=== PATIENT | female | born 1955 | race Caucasian/White ===

== ENCOUNTER 2021-08-27 05:30 | Day surgery (SDC) | payer OTHER, SELFPAY ==
[~2021-08-27] VITALS: Ht 167.6 cm; Wt 72.6 kg
[2021-08-27] MEDS ORDERED: CEFAZOLIN SOD 1 GM in D5W 50 ML IV ONE (07:30)
[2021-08-27] MEDS ORDERED: KETOROLAC TROMETHAMINE 30 MG VIAL IVP ONE (10:15)
[2021-08-27] MEDS ORDERED: LR 1,000 ML IV.SOLN IV ONE (10:15)
[2021-08-27] MEDS ORDERED: ISOSULFAN BLUE 5 ML VIAL (LYMPHAZURIN) INJ ONE (10:15)
[2021-08-27] MEDS ORDERED: NS IRRIG SOLN 1000 ML IR ONE (10:15)
[2021-08-27] MEDS ORDERED: SEVOFLURANE 15 MIN GAS INH ONE (10:15)
[2021-08-27] MEDS ORDERED: BUPIVACAINE /PF 0.25% 30 ML VIAL INJ ONE (10:15)
[2021-08-27] MEDS ORDERED: PROPOFOL 200MG/ 20ML VIAL (DIPRIVAN) IV ONE (10:15)
[2021-08-27] MEDS ORDERED: MIDAZOLAM HCL 5 MG/5 ML VIAL IVP ONE (10:15)
[2021-08-27] MEDS ORDERED: ONDANSETRON HCL 4 MG/2 ML VIAL IVP ONE (10:15)
[2021-08-27] MEDS ORDERED: HYDROmorphone 1 MG/ML INJ. CARTRIDGE IVP PRN (11:00)
[2021-08-27] MEDS ORDERED: KETOROLAC TROMETHAMINE 30 MG VIAL IVP PRN (11:00)
[2021-08-27] MEDS ORDERED: IBUPROFEN 400 MG TABLET PO ONE (11:00)
[2021-08-27] MEDS ORDERED: ONDANSETRON HCL 4 MG/2 ML VIAL IVP PRN (11:00)
[2021-08-27] MEDS ORDERED: D5/0.45 NS 1,000 ML IV SCH (11:45)
[2021-08-27] MEDS ORDERED: HYDROcodone/ACETAMIN 5-325 MG TAB (NORCO/ VICODIN) PO PRN ×2 (11:45)
[2021-08-27 14:33] VITALS: BP_SYST 150
== END 2021-08-27 14:00 | disposition home or self-care (01) ==
LOC: SDS 05:30 → SMU 05:30 → EDSTATUS 09:00 → SDS 14:00
PROVIDERS: ATTEND Colon & Rectal Surgery
DX: C50.912 Malignant neoplasm of unspecified site of left female breast (principal); E78.5 Hyperlipidemia, unspecified; G43.909 Migraine, unspecified, not intractable, without status migrainosus; K21.9 Gastro-esophageal reflux disease without esophagitis; M85.80 Other specified disorders of bone density and structure, unspecified site; Z79.899 Other long term (current) drug therapy; Z20.822 Contact with and (suspected) exposure to COVID-19
CPT/HCPCS: 19281; 19301; 36415; 38525; 78195; 87426; 88305; 88307; 88329; 88342; A9541; J0690; J1885; J2250; J2405; J2704; J3490; J7060; J7120; Q9968; U0003